=== PATIENT | male | born 1955 | race Caucasian/White ===

== ENCOUNTER 2019-05-10 07:42 | Inpatient (IN) | payer BC ==
[~2019-05-10] VITALS: Ht 177.8 cm; Wt 94.2 kg
[2019-05-10] VITALS (9 sets, daily range): BP systolic 129–180; BP diastolic 83–105
[2019-05-10] MEDS ORDERED: heparin 25,000 UNIT/250ml bag 250 ML IV SCH ×2 (08:31→10:43)
[2019-05-10] MEDS ORDERED: heparin 10,000 units/1 ML INJ IV ONE ×2 (08:35→08:45)
[2019-05-10] MEDS ORDERED: heparin 10,000 units/1 ML INJ IV PRN ×2 (08:35→10:45)
[2019-05-10 08:52] LABS: CLARITY,URINE CLEAR (Clear); COLOR,URINE YELLOW (Yellow); GLUCOSE, URINE NEGATIVE (Neg); KETONES,URINE NEGATIVE (Neg); LEUKOCYTE ESTERASE ,URINE NEGATIVE (Neg); NITRITES, URINE NEGATIVE (Neg); OCCULT BLOOD,URINE NEGATIVE (Neg); PROTEIN,URINE NEGATIVE (Neg); UROBILINOGEN,URINE 0.2 E.U/dL (0.2-1.0)
[2019-05-10 08:53] LABS: UA COLLECTION TYPE CLN CATCH MIDSTREAM
[2019-05-10 09:29] LABS: BASOPHILS % (AUTO) 0.7 % (0-1); EOSINOPHILS # (AUTO) 0.1 X10'3 (0-0.9); EOSINOPHILS % (AUTO) 1.5 % (0-6); HEMATOCRIT 41.1 % (42.0-52.0); HEMOGLOBIN 13.9 g/dl (14.0-17.9); LYMPHOCYTES # (AUTO) 2.9 X10'3 (1.1-4.8); LYMPHOCYTES % (AUTO) 44.5 % (21-51); MEAN CORPUSCULAR HEMOGLOBIN 30.2 PG (27.0-31.0); MEAN CORPUSCULAR HGB CONC 33.8 g/dL (33.0-36.5); MEAN CORPUSCULAR VOLUME 89.3 FL (78-98); MEAN PLATELET VOLUME 9.7 FL (7.4-10.4); MONOCYTES # (AUTO) 0.6 X10'3 (0-0.9); MONOCYTES % (AUTO) 9.4 % (2-12); NEUTROPHILS # (AUTO) 2.9 X10'3 (1.8-7.7); NEUTROPHILS % (AUTO) 43.9 % (42-75); PLATELET COUNT 242 X10'3 (140-440); RED CELL DISTRIBUTION WIDTH 13.9 % (11.5-14.5); WHITE BLOOD COUNT 6.5 X10'3 (4.5-11.0)
[2019-05-10 09:38] LABS: PARTIAL THROMBOPLASTIN TIME 36 SECONDS (22-32)
[2019-05-10 09:43] LABS: ALANINE AMINOTRANSFERASE 105 U/L (12-78); ALBUMIN 3.5 G/DL (3.4-5.0); ALBUMIN/GLOBULIN RATIO 1.1 (1.1-1.5); ALKALINE PHOSPHATASE 93 IU/L (46-116); ANION GAP 6 (8-16); ASPARTATE AMINO TRANSFERASE 24 U/L (10-37); BILIRUBIN,TOTAL 0.4 MG/DL (0.1-1.0); BLOOD UREA NITROGEN 9 MG/DL (7-18); BUN/CREATININE RATIO 9.2 (5.4-32.0); CALCIUM 8.9 MG/DL (8.5-10.1); CHLORIDE 104 MMOL/L (99-107); CREATININE 0.98 MG/DL (0.60-1.10); GLUCOSE 99 MG/DL (70-104); POTASSIUM 3.5 MMOL/L (3.5-5.1); SODIUM 141 MMOL/L (135-145); TOTAL CARBON DIOXIDE 31.3 MMOL/L (24-32); TOTAL PROTEIN 6.7 G/DL (6.4-8.2); eGFR 77 ML/MIN
[2019-05-10] MEDS ORDERED: magnesium hydroxide 30ml (MOM) UD suspension PO PRN ×2 (10:45→19:25)
[2019-05-10] MEDS ORDERED: morphine 2 MG/ML inj. syringe IV PRN ×2 (10:45)
[2019-05-10] MEDS ORDERED: magnesium 2GM in 50ml NS 50 ML IV PRN (10:45)
[2019-05-10] MEDS ORDERED: magnesium Cl slow-release 64mg tablet PO PRN (10:45)
[2019-05-10] MEDS ORDERED: potassium Cl 20 mEq SR tablet PO PRN ×2 (10:45)
[2019-05-10] MEDS ORDERED: acetaminophen 325mg tablet PO PRN ×3 (10:45→19:15)
[2019-05-10] MEDS ORDERED: ondansetron/PF 4mg/2ml inj IV PRN ×2 (10:45→19:15)
[2019-05-10] MEDS ORDERED: magnesium 4gm in 100ml NS 100 ML IV PRN (10:45)
[2019-05-10] MEDS ORDERED: diphenhydrAMINE 25mg capsule PO PRN (10:45)
[2019-05-10] MEDS ORDERED: metoclopramide 5 mg/ml inj IV PRN (10:45)
[2019-05-10] MEDS ORDERED: diphenhydrAMINE 50 mg/ml inj IV PRN (10:45)
[2019-05-10] MEDS ORDERED: potassium CL 10mEq/100ml bag 100 ML IV PRN ×2 (10:45)
[2019-05-10] MEDS ORDERED: bisacodyl 10mg suppository rectal RC PRN (10:45)
[2019-05-10] MEDS ORDERED: acetaminophen 650mg rectal suppository RC PRN (10:45)
[2019-05-10] MEDS ORDERED: mag hydrox/Alum hydrox/simeth 30ml oral suspension PO PRN (10:45)
[2019-05-10] MEDS ORDERED: NITR0.4T51 SL (10:54)
[2019-05-10] MEDS ORDERED: METO25TA6 PO (10:54)
[2019-05-10] MEDS ORDERED: ASPI-1265 PO (10:54)
[2019-05-10] MEDS ORDERED: LOSA100T57 PO (10:54)
[2019-05-10] MEDS ORDERED: ATOR80TA PO (10:54)
[2019-05-10 11:35] LABS: BASOPHILS # (AUTO) 0.1 X10'3 (0-0.2); EOSINOPHILS # (AUTO) 0.1 X10'3 (0-0.9); EOSINOPHILS % (AUTO) 1.9 % (0-6); HEMATOCRIT 40.3 % (42.0-52.0); HEMOGLOBIN 13.8 g/dl (14.0-17.9); LYMPHOCYTES % (AUTO) 46.4 % (21-51); MEAN CORPUSCULAR HEMOGLOBIN 30.4 PG (27.0-31.0); MEAN CORPUSCULAR HGB CONC 34.1 g/dL (33.0-36.5); MEAN PLATELET VOLUME 9.5 FL (7.4-10.4); MONOCYTES # (AUTO) 0.6 X10'3 (0-0.9); MONOCYTES % (AUTO) 8.8 % (2-12); NEUTROPHILS # (AUTO) 2.7 X10'3 (1.8-7.7); NEUTROPHILS % (AUTO) 41.9 % (42-75); PLATELET COUNT 238 X10'3 (140-440); RED BLOOD COUNT 4.53 X10'6 (4.70-6.10); WHITE BLOOD COUNT 6.5 X10'3 (4.5-11.0)
--- NOTE | 2019-05-10 11:50 | NUR ---
Received patient report from CATERINA Abdullahi in the ED. Patient is to be transferred to room 3014A. Will await patients arrival to the floor.
--- NOTE | 2019-05-10 12:15 | NUR ---
Patient has arrived to room 3014A via a gurney and transported by CATERINA Abdullahi. Patient was able to ambulate to the bed without assistance and had a steady gait. Patient has had his nasal swab, v/s, physical assessment, and questions answered at this time. Patient has been placed on tele #[id number]. Patient has been oriented to the room: call light within reach, BLL, SRx2. Will continue to monitor the patient.
[2019-05-10] MEDS ORDERED: LOSA1TAB39 PO (12:40)
[2019-05-10] MEDS ORDERED: AMLO10TA13 PO (12:42)
[2019-05-10] MEDS ORDERED: diphenhydrAMINE 25mg capsule PO ONE (14:00)
[2019-05-10] MEDS ORDERED: LORazepam 1 MG tablet PO ONE (14:00)
--- NOTE | 2019-05-10 14:02 | NUR ---
New orders from Dr. Jalloh. benadryl 50 mg PO now and 1 mg PO ativan now.
[2019-05-10] MEDS: normal saline 1000ml 1,000 ML IV SCH ×2 (14:42→20:51)
[2019-05-10 16:26] LABS: PARTIAL THROMBOPLASTIN TIME 65 SECONDS (22-32)
[2019-05-10] MEDS ORDERED: LIDOcaine 1% (10mg/ml)w/preservative injection 20ml MDV ONE (17:06)
[2019-05-10] MEDS ORDERED: iohexol 350 MG/ML 50ML vial IV ONE (17:06)
[2019-05-10] MEDS ORDERED: fentaNYL/PF 50MCG/1 ML 2ML syringe ONE (17:06)
[2019-05-10] MEDS ORDERED: iohexol 350MG/ML 100ml bottle IV ONE (17:06)
[2019-05-10] MEDS ORDERED: midazolam 2 mg/2 ml injection ONE (17:06)
[2019-05-10] MEDS ORDERED: nitroGLYCERIN 0.4mg SUBLingual tab SL PRN ×2 (18:05→19:25)
--- NOTE | 2019-05-10 18:42 | NUR ---
Problems reprioritized. Patient report given, questions answered & plan of care reviewed with CATERINA Sellers. 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
[2019-05-10] MEDS ORDERED: nitroGLYCERIN-Tridil 50MG/D5W 250 ML IV ONE (18:54)
[2019-05-10] MEDS ORDERED: HYDROcodone/acetaminophen 10/325mg tab PO PRN (19:15)
[2019-05-10] MEDS ORDERED: proCHLORperazine 10 MG/2 ml inj IV PRN (19:15)
[2019-05-10] MEDS ORDERED: OXAZEpam 15mg capsule PO PRN (19:15)
[2019-05-10] MEDS ORDERED: cyclobenzaprine 10mg tablet PO PRN (19:25)
[2019-05-10] MEDS ORDERED: morphine 4 MG/ML inj SYRINge IV PRN (19:25)
[2019-05-10] MEDS: K and/or MAG REPLACEMENT MC SCH (20:00)
[2019-05-10] MEDS ORDERED: docusate sod 100mg capsule PO SCH (20:00)
[2019-05-10] MEDS: docusate sod 100mg capsule PO SCH (20:48)
[2019-05-10] MEDS: atorvastatin 20mg tablet PO SCH (20:49)
[2019-05-10] MEDS: metoprolol tartrate 12.5mg (1/2 tablet) PO SCH (20:49)
[2019-05-10] MEDS: nitroGLYCERIN-Tridil 50MG/D5W 250 ML IV SCH (20:50)
[2019-05-10] MEDS ORDERED: temazepam 15mg capsule PO PRN (21:00)
--- NOTE | 2019-05-10 22:01 | NUR ---
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 Sheath site soft, dressing clean, dry, intact. Arterial sheath transduced to monitor. Pt hypertensive, Nitro drip started per MD order. 1934: [place] catheter placement attempted, unsuccessful with both 16F temp [place] and coude catheter. Urinal at patients bedside. 2200: Pt appears to be sleeping. Titrating Nitro per MD order.
[2019-05-11] VITALS (24 sets, daily range): BP systolic 110–163; BP diastolic 66–89
[2019-05-11 02:32] LABS: BASOPHILS # (AUTO) 0.1 X10'3 (0-0.2); BASOPHILS % (AUTO) 0.7 % (0-1); EOSINOPHILS % (AUTO) 0.2 % (0-6); HEMATOCRIT 37.6 % (42.0-52.0); HEMOGLOBIN 12.8 g/dl (14.0-17.9); LYMPHOCYTES # (AUTO) 1.2 X10'3 (1.1-4.8); LYMPHOCYTES % (AUTO) 13.2 % (21-51); MEAN CORPUSCULAR HEMOGLOBIN 30.3 PG (27.0-31.0); MEAN CORPUSCULAR HGB CONC 34.1 g/dL (33.0-36.5); MEAN CORPUSCULAR VOLUME 88.8 FL (78-98); MEAN PLATELET VOLUME 9.7 FL (7.4-10.4); MONOCYTES # (AUTO) 0.7 X10'3 (0-0.9); MONOCYTES % (AUTO) 7.9 % (2-12); NEUTROPHILS # (AUTO) 6.9 X10'3 (1.8-7.7); PLATELET COUNT 229 X10'3 (140-440); RED BLOOD COUNT 4.24 X10'6 (4.70-6.10); WHITE BLOOD COUNT 8.8 X10'3 (4.5-11.0)
[2019-05-11 02:50] LABS: ALANINE AMINOTRANSFERASE 82 U/L (12-78); ALBUMIN 3.1 G/DL (3.4-5.0); ALKALINE PHOSPHATASE 82 IU/L (46-116); ANION GAP 7 (8-16); ASPARTATE AMINO TRANSFERASE 19 U/L (10-37); BILIRUBIN,TOTAL 0.3 MG/DL (0.1-1.0); BLOOD UREA NITROGEN 13 MG/DL (7-18); BUN/CREATININE RATIO 13.5 (5.4-32.0); CALCIUM 8.5 MG/DL (8.5-10.1); CHLORIDE 105 MMOL/L (99-107); CHOL/HDL RATIO 1.9 (0.00-4.99); CHOLESTEROL 97 MG/DL (0-200); CREATININE 0.96 MG/DL (0.60-1.10); GLUCOSE 134 MG/DL (70-104); HDL CHOLESTEROL 52 MG/DL (35-60); LDL CHOLESTEROL 36 MG/DL (50-100); MAGNESIUM 1.8 MG/DL (1.5-2.4); PHOSPHORUS 2.1 MG/DL (2.3-4.5); POTASSIUM 3.5 MMOL/L (3.5-5.1); SODIUM 139 MMOL/L (135-145); TOTAL PROTEIN 6.1 G/DL (6.4-8.2); TRIGLYCERIDES 63 MG/DL (20-135); eGFR 79 ML/MIN
[2019-05-11 02:51] LABS: HEMOGLOBIN A1C 6.2 % (4.5-6.2)
[2019-05-11] MEDS: HYDROcodone/acetaminophen 5mg/325mg tablet PO PRN ×3 (05:12→19:34)
--- NOTE | 2019-05-11 06:25 | NUR ---
Problems reprioritized. Patient report given, questions answered & plan of care reviewed with Grady DIGGS.
[2019-05-11] MEDS ORDERED: dextrose 50%-water 50ml dispensing syringe IV PRN (07:35)
[2019-05-11] MEDS ORDERED: magnesium 2GM in 50ml NS 50 ML IV PRN (07:35)
[2019-05-11] MEDS ORDERED: MESSAGE TO NURSING PO ONE ×5 (07:35→10:00)
[2019-05-11] MEDS ORDERED: potassium Cl 20mEq/100mL bag 100 ML IV PRN (07:35)
[2019-05-11] MEDS ORDERED: magnesium 4gm in 100ml NS 100 ML IV PRN (07:35)
[2019-05-11] MEDS ORDERED: potassium Cl 20 mEq SR tablet PO PRN (07:35)
[2019-05-11] MEDS ORDERED: atorvastatin 20mg tablet PO SCH (08:00)
[2019-05-11] MEDS ORDERED: metoprolol tartrate 12.5mg (1/2 tablet) PO SCH (08:00)
[2019-05-11] MEDS: K and/or MAG REPLACEMENT MC SCH ×2 (08:00→20:00)
[2019-05-11] MEDS ORDERED: mupirocin 2% ointment 22GM NS SCH (08:00)
[2019-05-11] MEDS: docusate sod 100mg capsule PO SCH ×2 (08:14→19:33)
[2019-05-11] MEDS: metoprolol tartrate 12.5mg (1/2 tablet) PO SCH ×2 (08:14→19:33)
[2019-05-11] MEDS: aspirin 81mg tab.chew PO SCH (08:15)
[2019-05-11] MEDS: normal saline 1000ml 1,000 ML IV SCH ×2 (08:25→19:01)
[2019-05-11] MEDS ORDERED: aspirin 325mg tablet PO SCH (08:30)
--- NOTE | 2019-05-11 08:45 | NUR ---
Spoke with Vickey TOLBERT to confirm orders: Okay to D/C two view x-ray as patient is supine with right groin sheath. Also, okay to D/C 325mg Aspirin. Vickey TOLBERT aware of K/Mg levels, okay to replace per standard ICU replacement of K<3.5 and Mg <1.5 and not the additional post-cardiac replacement orders.
[2019-05-11 09:51] LABS: ABG BASE EXCESS -0.8 mmol/L (-2.0-3.0); ABG HCO3 22.6 mmol/L (22.0-26.0); ABG OXYGEN SATURATION 95.5 % (95-98); ABG PCO2 (T) 33.2 mmHg (35.0-45.0); ABG PO2 (T) 77.6 mmHg (83-108); FCOHb 0.3 % (0.5-1.5); FO2Hb 95.2 % (94-100); TOTAL HEMOGLOBIN 12.6 G/dl (14.0-17.9)
[2019-05-11] MEDS ORDERED: heparin 25,000 UNIT/250ml bag 250 ML IV SCH (11:19)
--- NOTE | 2019-05-11 11:25 | NUR ---
Problems reprioritized. Patient report given, questions answered & plan of care reviewed with Maicol DIGGS.
--- NOTE | 2019-05-11 11:58 | NUR ---
Heparin gtt found at 11.1units/kg/hr and 9.85ml/hr. Change to 12units/kg/hr to correctly reflect MD order. Previous ptt 48. Goal Ptt 45-60. Current infusion rate 10.69ml/hr. Will continue to monitor ptt closely and notify MD of changes.
--- NOTE | 2019-05-11 12:07 | NUR ---
Incorrect weight noted on heparin pump previous weight on pump found at 88.7kg. Pt acutal weight noted to be 99.4kg. Pump updated to reflect current weight and MD order of 12units/kg/hr for an infusion rate of 11.9 ml/hr. Previous ptt 48 and goal ptt 45-60.Will continue to monitor ptt and bleeding closely.
[2019-05-11] MEDS: nitroGLYCERIN-Tridil 50MG/D5W 250 ML IV SCH (13:02)
[2019-05-11] MEDS ORDERED: ringers solution, lacted 1,000 ML IV ONE (13:24)
--- NOTE | 2019-05-11 17:22 | NUR ---
pt with feeling some flushness and clammy. Pt reported having some mild chest tightness. No changes in VS. BPs 150/80s HR 70s sating 98% without SOB. Nitro increased to 60mcg/min. EKG ordered per MD. MD otero to bedside and aware. Will continue to monitor.
[2019-05-11] MEDS ORDERED: temazepam 15mg capsule PO PRN (18:15)
[2019-05-11] MEDS ORDERED: LORazepam 1 MG tablet PO PRN (18:15)
--- NOTE | 2019-05-11 18:40 | NUR ---
Patient in room ICU 2043. I have received report from Maicol DIGGS and had the opportunity to ask questions and assume patient care.
[2019-05-11] MEDS: mupirocin 2% nasal ointment 1gm UD NS SCH (19:34)
--- NOTE | 2019-05-11 22:24 | NUR ---
Pt experiencing increased chest pain, Morphine 2mg IV given for 8/10 pain per patient statement. Titrating Nitro drip per MD order. Placed on 2LNC. EKG obtained, unchanged from previous. Pt states pain relieved p/morphine. Will continue to monitor.
[2019-05-11] MEDS: atorvastatin 20mg tablet PO SCH (23:08)
[2019-05-12] VITALS (25 sets, daily range): BP systolic 121–175; BP diastolic 65–95
[2019-05-12 02:52] LABS: BASOPHILS # (AUTO) 0.1 X10'3 (0-0.2); BASOPHILS % (AUTO) 0.6 % (0-1); EOSINOPHILS % (AUTO) 0.5 % (0-6); HEMATOCRIT 33.6 % (42.0-52.0); HEMOGLOBIN 11.6 g/dl (14.0-17.9); LYMPHOCYTES # (AUTO) 2.9 X10'3 (1.1-4.8); LYMPHOCYTES % (AUTO) 29.4 % (21-51); MEAN CORPUSCULAR HEMOGLOBIN 30.2 PG (27.0-31.0); MEAN CORPUSCULAR HGB CONC 34.4 g/dL (33.0-36.5); MEAN CORPUSCULAR VOLUME 87.8 FL (78-98); MEAN PLATELET VOLUME 9.4 FL (7.4-10.4); MONOCYTES # (AUTO) 1.1 X10'3 (0-0.9); MONOCYTES % (AUTO) 11.4 % (2-12); NEUTROPHILS # (AUTO) 5.7 X10'3 (1.8-7.7); NEUTROPHILS % (AUTO) 58.1 % (42-75); PLATELET COUNT 213 X10'3 (140-440); RED BLOOD COUNT 3.83 X10'6 (4.70-6.10); RED CELL DISTRIBUTION WIDTH 14.2 % (11.5-14.5); WHITE BLOOD COUNT 9.8 X10'3 (4.5-11.0)
[2019-05-12 03:10] LABS: ALANINE AMINOTRANSFERASE 60 U/L (12-78); ALBUMIN 2.7 G/DL (3.4-5.0); ALBUMIN/GLOBULIN RATIO 0.9 (1.1-1.5); ALKALINE PHOSPHATASE 70 IU/L (46-116); ANION GAP 4 (8-16); ASPARTATE AMINO TRANSFERASE 15 U/L (10-37); BILIRUBIN,TOTAL 0.4 MG/DL (0.1-1.0); BLOOD UREA NITROGEN 7 MG/DL (7-18); BUN/CREATININE RATIO 8.4 (5.4-32.0); CALCIUM 8.2 MG/DL (8.5-10.1); CHLORIDE 106 MMOL/L (99-107); CREATININE 0.83 MG/DL (0.60-1.10); GLUCOSE 119 MG/DL (70-104); MAGNESIUM 1.8 MG/DL (1.5-2.4); PHOSPHORUS 3.2 MG/DL (2.3-4.5); POTASSIUM 3.6 MMOL/L (3.5-5.1); SODIUM 139 MMOL/L (135-145); TOTAL CARBON DIOXIDE 28.7 MMOL/L (24-32); TOTAL PROTEIN 5.7 G/DL (6.4-8.2); eGFR > 90 ML/MIN
--- NOTE | 2019-05-12 04:27 | NUR ---
Pt appears to be sleeping. denies pain when awake. Will continue to monitor
[2019-05-12] MEDS ORDERED: ROPIVAcaine 0.5% (5mg/ml) 30ml vial ONE (05:09)
[2019-05-12] MEDS ORDERED: LORazepam 2 mg/ml vial IV ONE (06:00)
[2019-05-12] MEDS ORDERED: MALTODEXTRIN/FRUCTOSE 0.68 KCAL/ML LIQUID 296ML BOTTLE PO ONE (06:00)
[2019-05-12] MEDS ORDERED: ringers solution, lacted 1,000 ML IV ONE (06:00)
[2019-05-12] MEDS ORDERED: famotidine 20mg tablet PO ONE (06:00)
[2019-05-12] MEDS ORDERED: gabapentin 400mg capsule PO ONE (06:00)
[2019-05-12] MEDS ORDERED: LORazepam 2 mg/ml vial ONE (06:20)
[2019-05-12] MEDS ORDERED: vancomycin/NS 1 GM ADD-VANTAGE 250 ML IV ONE (06:30)
[2019-05-12] MEDS ORDERED: cefazolin/dext.iso 2gm/100ml 100 ML IV ONE (06:30)
--- NOTE | 2019-05-12 06:30 | NUR ---
Problems reprioritized. CABG prep completed. Patient report given, questions answered & plan of care reviewed with Rio DIGGS.
[2019-05-12] MEDS: metoprolol tartrate 12.5mg (1/2 tablet) PO SCH (06:46)
[2019-05-12] MEDS: aspirin 81mg tab.chew PO SCH (06:47)
[2019-05-12] MEDS: mupirocin 2% nasal ointment 1gm UD NS SCH ×2 (06:50→19:52)
[2019-05-12] MEDS ORDERED: aminocaproic acid 250 MG/1 ML inj. ONE (06:52)
[2019-05-12] MEDS ORDERED: isoflurane 100ml inhalation liquid IH ONE (06:52)
[2019-05-12] MEDS ORDERED: nitroGLYCERIN in D5W 50mg/250ml (Tridil) infusion IV ONE (06:52)
--- NOTE | 2019-05-12 06:57 | NUR ---
patient sent off to OR. Patient completely prepped. VSS; hypertensive and some intermittent chest pain with anxiety. Patient alert and oriented
[2019-05-12] MEDS ORDERED: SUFENTANIL CITRATE 50 MCG/ML 2ml ampule IV ONE (07:03)
[2019-05-12] MEDS ORDERED: phenylephrine 10mg/ml inj. ONE ×2 (07:05→08:00)
[2019-05-12] MEDS ORDERED: propofol inj 20 ML IV ONE (07:07)
[2019-05-12] MEDS ORDERED: LIDOcaine 2% (20mg/ml) 5ml vial ONE (07:07)
[2019-05-12] MEDS ORDERED: rocuronium 10mg/ml inj IV ONE (07:16)
[2019-05-12] MEDS ORDERED: pancuronium br 1mg/ml inj IV ONE (07:16)
[2019-05-12] MEDS ORDERED: insulin glargine (Lantus) pen - multi-dose SQ PRN ×2 (07:35→11:10)
[2019-05-12 07:45] LABS: ABG BASE EXCESS -0.4 mmol/L (-2.0-3.0); ABG HCO3 23.6 mmol/L (22.0-26.0); ABG OXYGEN SATURATION 98.9 % (95-98); ABG PCO2 36.4 mmHg (35.0-45.0); CL (ABG) 104 mmol/L (99-107); FCOHb 0.4 % (0.5-1.5); FMetHb 0.3 % (0.3-1.12); FO2Hb 98.2 % (94-100); GLUCOSE (ABG) 132 mg/dl (70-104); IONIZED CA (ABG) 1.19 mmol/L (1.03-1.32); K (ABG) 3.1 mmol/L (3.3-5.1); NA (ABG) 137 mmol/L (135-145); TOTAL HEMOGLOBIN 11.4 G/dl (14.0-17.9)
[2019-05-12] MEDS ORDERED: aminophylline 250mg/10ml inj. IV ONE (08:00)
[2019-05-12] MEDS ORDERED: heparin 1,000 units/ml 10ml inj ONE (08:00)
[2019-05-12] MEDS ORDERED: sodium bicarbonate (8.4%) 1 mEq/ml syringe ONE (08:00)
[2019-05-12] MEDS ORDERED: magnesium sulf 1 GM/2 ML ONE (08:00)
[2019-05-12] MEDS: docusate sod 100mg capsule PO SCH ×2 (08:00→20:00)
[2019-05-12] MEDS ORDERED: heparin 10,000 units/1 ML INJ ONE (08:00)
[2019-05-12] MEDS ORDERED: potassium Cl 2 mEq/ml inj IV ONE (08:00)
[2019-05-12] MEDS ORDERED: LIDOcaine 2% (20 mg/ml) 5ml cardiac syringe ONE (08:00)
[2019-05-12] MEDS ORDERED: albumin (human) 25% 100 ML IV solution IV ONE (08:00)
[2019-05-12] MEDS ORDERED: calcium chloride 100 MG/1 ML inj IV ONE (08:00)
[2019-05-12] MEDS ORDERED: papaverine 30 mg/ml 2ml inj. ONE (08:00)
[2019-05-12] MEDS ORDERED: methylPREDNISolone sod. succ. 500mg inj ONE (08:00)
[2019-05-12] MEDS ORDERED: ipratropium/albuterol 3ml nebule IH PRN (08:10)
[2019-05-12 09:06] LABS: ABG BASE EXCESS 3.8 mmol/L (-2.0-3.0); ABG HCO3 26.4 mmol/L (22.0-26.0); ABG PCO2 31.9 mmHg (35.0-45.0); ABG PH 7.536 (7.350-7.450); ABG PO2 406.2 mmHg (60.0-100.0); CL (ABG) 101 mmol/L (99-107); FCOHb 0.1 % (0.5-1.5); FMetHb 0.3 % (0.3-1.12); FO2Hb 98.6 % (94-100); GLUCOSE (ABG) 106 mg/dl (70-104); IONIZED CA (ABG) 1.05 mmol/L (1.03-1.32); K (ABG) 3.8 mmol/L (3.3-5.1); NA (ABG) 133 mmol/L (135-145); TOTAL HEMOGLOBIN 8.7 G/dl (14.0-17.9)
[2019-05-12 09:31] LABS: ABG BASE EXCESS VENOUS 2.2 mmol/L; ABG HCO3 VENOUS 26.4 mmol/L; ABG PCO2 VENOUS 39.4 mmHg; ABG PO2 VENOUS 51.8 mmHg; CL (ABG) 102 mmol/L (99-107); FCOHb VENOUS 0.7 %; FHHb VENOUS 11.3 %; FMetHb VENOUS 0.3 %; FO2Hb VENOUS 87.7 %; GLUCOSE (ABG) 116 mg/dl (70-104); IONIZED CA (ABG) 1.11 mmol/L (1.03-1.32); K (ABG) 3.7 mmol/L (3.3-5.1); NA (ABG) 134 mmol/L (135-145)
[2019-05-12 09:55] LABS: ABG BASE EXCESS 2.5 mmol/L (-2.0-3.0); ABG OXYGEN SATURATION 99.2 % (95-98); ABG PCO2 35.8 mmHg (35.0-45.0); ABG PH 7.479 (7.350-7.450); CL (ABG) 104 mmol/L (99-107); FCOHb 0.6 % (0.5-1.5); FMetHb 0.2 % (0.3-1.12); FO2Hb 98.4 % (94-100); GLUCOSE (ABG) 122 mg/dl (70-104); IONIZED CA (ABG) 1.11 mmol/L (1.03-1.32); K (ABG) 3.8 mmol/L (3.3-5.1); NA (ABG) 134 mmol/L (135-145)
[2019-05-12 10:15] LABS: ABG BASE EXCESS 1.7 mmol/L (-2.0-3.0); ABG OXYGEN SATURATION 99.1 % (95-98); ABG PCO2 39.3 mmHg (35.0-45.0); ABG PH 7.438 (7.350-7.450); ABG PO2 426.4 mmHg (60.0-100.0); CL (ABG) 100 mmol/L (99-107); FCOHb 0.4 % (0.5-1.5); FMetHb 0.6 % (0.3-1.12); FO2Hb 98.1 % (94-100); GLUCOSE (ABG) 112 mg/dl (70-104); IONIZED CA (ABG) 1.43 mmol/L (1.03-1.32); K (ABG) 3.9 mmol/L (3.3-5.1); NA (ABG) 131 mmol/L (135-145); TOTAL HEMOGLOBIN 8.4 G/dl (14.0-17.9)
[2019-05-12 10:50] LABS: ABG BASE EXCESS 1.9 mmol/L (-2.0-3.0); ABG HCO3 25.2 mmol/L (22.0-26.0); ABG OXYGEN SATURATION 96.6 % (95-98); ABG PH 7.487 (7.350-7.450); ABG PO2 87.2 mmHg (60.0-100.0); CL (ABG) 104 mmol/L (99-107); FCOHb 0.3 % (0.5-1.5); FMetHb 0.4 % (0.3-1.12); FO2Hb 95.9 % (94-100); GLUCOSE (ABG) 111 mg/dl (70-104); IONIZED CA (ABG) 1.26 mmol/L (1.03-1.32); K (ABG) 3.5 mmol/L (3.3-5.1); NA (ABG) 134 mmol/L (135-145); TOTAL HEMOGLOBIN 9.7 G/dl (14.0-17.9)
[2019-05-12] MEDS ORDERED: niCARDipine-NS 40mg/200ml IVPB 200 ML IV PRN (11:10)
[2019-05-12] MEDS ORDERED: sodium phosphate inj. 30 MMOL in dextrose 5%-water 250 ML IV PRN (11:10)
[2019-05-12] MEDS ORDERED: morphine 4 MG/ML inj SYRINge IV PRN ×2 (11:10)
[2019-05-12] MEDS ORDERED: magnesium hydroxide 30ml (MOM) UD suspension PO PRN (11:10)
[2019-05-12] MEDS ORDERED: sodium chloride 0.45% 1,000 ML IV SCH (11:10)
[2019-05-12] MEDS ORDERED: ondansetron/PF 4mg/2ml inj IV PRN (11:10)
[2019-05-12] MEDS ORDERED: potassium Cl 20 mEq SR tablet PO PRN (11:10)
[2019-05-12] MEDS ORDERED: sodium phosphate inj. 15 MMOL in dextrose 5%-water 150 ML IV PRN (11:10)
[2019-05-12] MEDS ORDERED: nitroGLYCERIN-Tridil 50MG/D5W 250 ML IV PRN (11:10)
[2019-05-12] MEDS ORDERED: insulin regular, human 100 UNIT in normal saline 100ml IV soln 100 ML IV SCH ×2 (11:10)
[2019-05-12] MEDS ORDERED: HYDROcodone/acetaminophen 10/325mg tab PO PRN (11:10)
[2019-05-12] MEDS ORDERED: normal saline 250ml IV soln 250 ML IV PRN (11:10)
[2019-05-12] MEDS ORDERED: Neutra Phos packet PO PRN (11:10)
[2019-05-12] MEDS ORDERED: acetaminophen 325mg tablet PO PRN ×2 (11:10)
[2019-05-12] MEDS ORDERED: magnesium 4gm in 100ml NS 100 ML IV PRN (11:10)
[2019-05-12] MEDS ORDERED: dextrose 50%-water 50ml dispensing syringe IV PRN (11:10)
[2019-05-12] MEDS ORDERED: DOPamine 400mg/D5W 250ml 250 ML IV PRN (11:10)
[2019-05-12] MEDS ORDERED: pantoprazole 40 MG vial IV ONE (11:10)
[2019-05-12] MEDS ORDERED: metoclopramide 5 mg/ml inj IV PRN (11:10)
--- NOTE | 2019-05-12 11:15 | NUR ---
Received to room 2012, accompanied by MDs and surgical crew. Placed on ventilator, to snuff grinder and screener, arterial line and PA line pressure monitored. Chest tubes to suction at 20 cm. Osorio cath to gravity drainage. Dressings are dry and intact. See assessment record. All vasoactive drugs are infusing via central line.
[2019-05-12 11:35] LABS: ABG BASE EXCESS 2.7 mmol/L (-2.0-3.0); ABG HCO3 25.5 mmol/L (22.0-26.0); ABG OXYGEN SATURATION 96.8 % (95-98); ABG PCO2 (T) 31.2 mmHg (35.0-45.0); ABG PH (T) 7.525 (7.350-7.450); ABG PO2 (T) 81.2 mmHg (83-108); FCOHb 0.3 % (0.5-1.5); FMetHb 0.1 % (0.3-1.12); FO2Hb 96.4 % (94-100); MINUTE VOLUME 8 L/min; PATIENT TEMPERATURE 35.6; PEEP 5 cm H2O; RESPIRATORY RATE 12 b/min; TIDAL VOLUME 650 mL; TOTAL HEMOGLOBIN 11.7 G/dl (14.0-17.9)
[2019-05-12 11:43] LABS: BASOPHILS % (AUTO) 0.3 % (0-1); EOSINOPHILS # (AUTO) 0.1 X10'3 (0-0.9); EOSINOPHILS % (AUTO) 0.7 % (0-6); HEMATOCRIT 31.5 % (42.0-52.0); HEMOGLOBIN 10.9 g/dl (14.0-17.9); LYMPHOCYTES # (AUTO) 0.9 X10'3 (1.1-4.8); LYMPHOCYTES % (AUTO) 9.7 % (21-51); MEAN CORPUSCULAR HEMOGLOBIN 30.7 PG (27.0-31.0); MEAN CORPUSCULAR HGB CONC 34.5 g/dL (33.0-36.5); MEAN PLATELET VOLUME 9.3 FL (7.4-10.4); MONOCYTES # (AUTO) 0.6 X10'3 (0-0.9); NEUTROPHILS % (AUTO) 83.3 % (42-75); PLATELET COUNT 143 X10'3 (140-440); RED BLOOD COUNT 3.53 X10'6 (4.70-6.10); RED CELL DISTRIBUTION WIDTH 14.1 % (11.5-14.5); WHITE BLOOD COUNT 9.6 X10'3 (4.5-11.0)
[2019-05-12 11:53] LABS: PARTIAL THROMBOPLASTIN TIME 32 SECONDS (22-32)
[2019-05-12 12:00] LABS: ALANINE AMINOTRANSFERASE 45 U/L (12-78); ALBUMIN 2.5 G/DL (3.4-5.0); ALBUMIN/GLOBULIN RATIO 1.1 (1.1-1.5); ALKALINE PHOSPHATASE 55 IU/L (46-116); ANION GAP 3 (8-16); ASPARTATE AMINO TRANSFERASE 27 U/L (10-37); BILIRUBIN,TOTAL 0.6 MG/DL (0.1-1.0); BLOOD UREA NITROGEN 5 MG/DL (7-18); BUN/CREATININE RATIO 5.6 (5.4-32.0); CALCIUM 8.4 MG/DL (8.5-10.1); CHLORIDE 109 MMOL/L (99-107); CREATININE 0.89 MG/DL (0.60-1.10); GLUCOSE 104 MG/DL (70-104); POTASSIUM 3.1 MMOL/L (3.5-5.1); SODIUM 140 MMOL/L (135-145); TOTAL CARBON DIOXIDE 28.2 MMOL/L (24-32); TOTAL PROTEIN 4.8 G/DL (6.4-8.2); eGFR 86 ML/MIN
[2019-05-12 12:06] LABS: MAGNESIUM 3.2 MG/DL (1.5-2.4)
[2019-05-12 12:08] LABS: PHOSPHORUS 0.7 MG/DL (2.3-4.5)
--- NOTE | 2019-05-12 12:13 | NUR ---
Critical phosphorous of 0.7; pharmacy called for STAT replacement orders per protocol.
[2019-05-12] MEDS: potassium Cl 20mEq/100mL bag 100 ML IV PRN ×8 (12:14→20:51)
[2019-05-12] MEDS: gabapentin 300mg capsule PO SCH ×2 (12:18→20:37)
[2019-05-12] MEDS: insulin regular, human 100 UNIT in normal saline 100ml IV soln 100 ML IV SCH ×4 (13:02→19:04)
[2019-05-12] MEDS: albumin (Human) 5% 250ml 250 ML IV PRN ×2 (14:25→16:08)
[2019-05-12] MEDS: ceFAZolin 1GM/D5W- ADD-VANTAGE 50 ML IV SCH (16:35)
[2019-05-12 17:23] LABS: BASOPHILS % (AUTO) 0.1 % (0-1); EOSINOPHILS % (AUTO) 0 % (0-6); HEMATOCRIT 32.4 % (42.0-52.0); HEMOGLOBIN 11.4 g/dl (14.0-17.9); LYMPHOCYTES # (AUTO) 0.9 X10'3 (1.1-4.8); LYMPHOCYTES % (AUTO) 8.5 % (21-51); MEAN CORPUSCULAR HEMOGLOBIN 30.6 PG (27.0-31.0); MEAN CORPUSCULAR HGB CONC 35.3 g/dL (33.0-36.5); MEAN CORPUSCULAR VOLUME 86.7 FL (78-98); MEAN PLATELET VOLUME 9.4 FL (7.4-10.4); MONOCYTES # (AUTO) 0.4 X10'3 (0-0.9); NEUTROPHILS # (AUTO) 8.7 X10'3 (1.8-7.7); NEUTROPHILS % (AUTO) 87.4 % (42-75); PLATELET COUNT 154 X10'3 (140-440); RED BLOOD COUNT 3.74 X10'6 (4.70-6.10)
[2019-05-12 17:34] LABS: ALBUMIN 3.1 G/DL (3.4-5.0); ANION GAP 6 (8-16); BLOOD UREA NITROGEN 6 MG/DL (7-18); BUN/CREATININE RATIO 6.4 (5.4-32.0); CALCIUM 8.4 MG/DL (8.5-10.1); CHLORIDE 111 MMOL/L (99-107); CREATININE 0.94 MG/DL (0.60-1.10); GLUCOSE 158 MG/DL (70-104); MAGNESIUM 2.3 MG/DL (1.5-2.4); PHOSPHORUS 1.8 MG/DL (2.3-4.5); POTASSIUM 3.4 MMOL/L (3.5-5.1); SODIUM 142 MMOL/L (135-145); TOTAL CARBON DIOXIDE 24.8 MMOL/L (24-32); eGFR 81 ML/MIN
[2019-05-12] MEDS: magnesium 2GM in 50ml NS 50 ML IV PRN (17:44)
--- NOTE | 2019-05-12 18:22 | NUR ---
Problems reprioritized. Patient report given, questions answered & plan of care reviewed with Zoila DIGGS.
--- NOTE | 2019-05-12 18:30 | NUR ---
Patient in room CICU 2011. I have received report from Grady DIGGS and had the opportunity to ask questions and assume patient care.
[2019-05-12] MEDS: VANCOMYCIN 1gm/H2O 200ml PB 200 ML IV SCH (19:53)
[2019-05-12 21:01] LABS: ABG BASE EXCESS -2.8 mmol/L (-2.0-3.0); ABG HCO3 19.7 mmol/L (22.0-26.0); ABG OXYGEN SATURATION 97.2 % (95-98); ABG PCO2 (T) 28.7 mmHg (35.0-45.0); ABG PH (T) 7.457 (7.350-7.450); ABG PO2 (T) 103.3 mmHg (83-108); FCOHb 0.3 % (0.5-1.5); FMetHb 0.1 % (0.3-1.12); FO2Hb 96.8 % (94-100); MINUTE VOLUME 12 L/min; PEEP 5 cm H2O; RESPIRATORY RATE (OBSERVED) 32 b/min
--- NOTE | 2019-05-12 21:10 | NUR ---
Patient extubated at 2110 to 4L NC. Patient doing well, all VS stable at this time. Will continue to monitor.
[2019-05-13] VITALS (24 sets, daily range): BP systolic 120–160; BP diastolic 71–96
--- NOTE | 2019-05-13 | NUR ---
Patients Nitro increased, artline BP increasing at this time. Will continue to monitor.
[2019-05-13] MEDS: ceFAZolin 1GM/D5W- ADD-VANTAGE 50 ML IV SCH ×3 (00:03→17:06)
--- NOTE | 2019-05-13 00:43 | NUR ---
Artline and BP cuff on right arm and not correlating. Artline pressure approx 20 points higher. Will continue to monitor.
[2019-05-13] MEDS: HYDROcodone/acetaminophen 10/325mg tab PO PRN ×2 (03:05→20:24)
[2019-05-13 03:15] LABS: BASOPHILS % (AUTO) 0 % (0-1); EOSINOPHILS % (AUTO) 0 % (0-6); HEMATOCRIT 31.5 % (42.0-52.0); HEMOGLOBIN 10.7 g/dl (14.0-17.9); LYMPHOCYTES % (AUTO) 5.6 % (21-51); MEAN CORPUSCULAR HEMOGLOBIN 30.3 PG (27.0-31.0); MEAN CORPUSCULAR VOLUME 89.1 FL (78-98); MEAN PLATELET VOLUME 10.4 FL (7.4-10.4); MONOCYTES % (AUTO) 5.5 % (2-12); NEUTROPHILS # (AUTO) 15.4 X10'3 (1.8-7.7); NEUTROPHILS % (AUTO) 88.9 % (42-75); PLATELET COUNT 149 X10'3 (140-440); RED BLOOD COUNT 3.53 X10'6 (4.70-6.10); RED CELL DISTRIBUTION WIDTH 14.3 % (11.5-14.5); WHITE BLOOD COUNT 17.3 X10'3 (4.5-11.0)
[2019-05-13 03:19] LABS: PARTIAL THROMBOPLASTIN TIME 29 SECONDS (22-32)
[2019-05-13 03:31] LABS: ALANINE AMINOTRANSFERASE 47 U/L (12-78); ALBUMIN 2.8 G/DL (3.4-5.0); ALKALINE PHOSPHATASE 53 IU/L (46-116); ANION GAP 10 (8-16); ASPARTATE AMINO TRANSFERASE 46 U/L (10-37); BILIRUBIN,TOTAL 0.3 MG/DL (0.1-1.0); BLOOD UREA NITROGEN 7 MG/DL (7-18); BUN/CREATININE RATIO 7.7 (5.4-32.0); CALCIUM 8.3 MG/DL (8.5-10.1); CHLORIDE 110 MMOL/L (99-107); CREATININE 0.91 MG/DL (0.60-1.10); GLUCOSE 145 MG/DL (70-104); MAGNESIUM 2.3 MG/DL (1.5-2.4); PHOSPHORUS 3.8 MG/DL (2.3-4.5); SODIUM 143 MMOL/L (135-145); TOTAL PROTEIN 5.5 G/DL (6.4-8.2); eGFR 84 ML/MIN
[2019-05-13] MEDS: magnesium 2GM in 50ml NS 50 ML IV PRN ×2 (04:32→13:18)
[2019-05-13] MEDS: potassium Cl 20mEq/100mL bag 100 ML IV PRN ×2 (04:33→05:26)
--- NOTE | 2019-05-13 06:28 | NUR ---
Problems reprioritized. Patient report given, questions answered & plan of care reviewed with Grady DIGGS.
[2019-05-13] MEDS: docusate sod 100mg capsule PO SCH ×2 (07:48→20:25)
[2019-05-13] MEDS: mupirocin 2% nasal ointment 1gm UD NS SCH ×2 (07:48→20:23)
[2019-05-13] MEDS: atorvastatin 10mg tablet PO SCH (07:49)
[2019-05-13] MEDS: gabapentin 300mg capsule PO SCH ×3 (07:49→20:23)
[2019-05-13] MEDS: VANCOMYCIN 1gm/H2O 200ml PB 200 ML IV SCH ×2 (07:50→20:25)
[2019-05-13] MEDS ORDERED: metoprolol tartrate 12.5mg (1/2 tablet) PO SCH (08:00)
[2019-05-13] MEDS ORDERED: aspirin 325mg tablet, delayed-release (Ecotrin) PO SCH (08:00)
[2019-05-13] MEDS ORDERED: losartan 50mg tablet PO ONE (09:10)
[2019-05-13] MEDS ORDERED: metoprolol tartrate 12.5mg (1/2 tablet) PO ONE (09:10)
[2019-05-13] MEDS ORDERED: furosemide 40mg/4ml inj IV ONE (09:15)
[2019-05-13 12:30] LABS: MAGNESIUM 2.4 MG/DL (1.5-2.4)
[2019-05-13 12:36] LABS: POTASSIUM 4.1 MMOL/L (3.5-5.1)
[2019-05-13 17:35] LABS: MAGNESIUM 2.8 MG/DL (1.5-2.4); POTASSIUM 4.5 MMOL/L (3.5-5.1)
--- NOTE | 2019-05-13 18:27 | NUR ---
Problems reprioritized. Patient report given, questions answered & plan of care reviewed with Zoila DIGGS.
--- NOTE | 2019-05-13 18:30 | NUR ---
Patient in room CICU 2011. I have received report from Grady DIGGS and had the opportunity to ask questions and assume patient care.
--- NOTE | 2019-05-13 19:30 | NUR ---
Patient ambulated 200 feet, tolerated well and back to room to sit in chair. Patient in chair watching TV at this time. Will continue to monitor.
[2019-05-13] MEDS: metoprolol tartrate 12.5mg (1/2 tablet) PO SCH (20:24)
[2019-05-14] VITALS (15 sets, daily range): BP systolic 111–148; BP diastolic 76–101
[2019-05-14] MEDS: ceFAZolin 1GM/D5W- ADD-VANTAGE 50 ML IV SCH (00:24)
[2019-05-14 04:09] LABS: ALBUMIN 2.6 G/DL (3.4-5.0); ANION GAP 4 (8-16); BLOOD UREA NITROGEN 14 MG/DL (7-18); BUN/CREATININE RATIO 16.1 (5.4-32.0); CALCIUM 8.2 MG/DL (8.5-10.1); CHLORIDE 108 MMOL/L (99-107); CREATININE 0.87 MG/DL (0.60-1.10); GLUCOSE 127 MG/DL (70-104); MAGNESIUM 2.4 MG/DL (1.5-2.4); PHOSPHORUS 2.8 MG/DL (2.3-4.5); POTASSIUM 4.5 MMOL/L (3.5-5.1); SODIUM 140 MMOL/L (135-145); TOTAL CARBON DIOXIDE 28.4 MMOL/L (24-32); eGFR 89 ML/MIN
[2019-05-14] MEDS: magnesium 2GM in 50ml NS 50 ML IV PRN (04:53)
[2019-05-14 05:55] LABS: BASOPHILS % (AUTO) 0.1 % (0-1); EOSINOPHILS % (AUTO) 0 % (0-6); HEMATOCRIT 32.1 % (42.0-52.0); HEMOGLOBIN 10.9 g/dl (14.0-17.9); LYMPHOCYTES % (AUTO) 12.3 % (21-51); MEAN CORPUSCULAR HEMOGLOBIN 30.7 PG (27.0-31.0); MEAN CORPUSCULAR HGB CONC 34.1 g/dL (33.0-36.5); MEAN PLATELET VOLUME 10.6 FL (7.4-10.4); MONOCYTES # (AUTO) 1.4 X10'3 (0-0.9); MONOCYTES % (AUTO) 8.4 % (2-12); NEUTROPHILS % (AUTO) 79.2 % (42-75); PLATELET COUNT 167 X10'3 (140-440); RED BLOOD COUNT 3.56 X10'6 (4.70-6.10); RED CELL DISTRIBUTION WIDTH 14.1 % (11.5-14.5); WHITE BLOOD COUNT 16.5 X10'3 (4.5-11.0)
--- NOTE | 2019-05-14 06:33 | NUR ---
Problems reprioritized. Patient report given, questions answered & plan of care reviewed with Carmelo DIGGS.
[2019-05-14 06:53] LABS: LARGE PLATELETS FEW; PLATELET ESTIMATE NORMAL
[2019-05-14] MEDS: mupirocin 2% nasal ointment 1gm UD NS SCH (08:00)
[2019-05-14] MEDS: aspirin 81mg tab.chew PO SCH (08:07)
[2019-05-14] MEDS: atorvastatin 10mg tablet PO SCH (08:08)
[2019-05-14] MEDS: gabapentin 300mg capsule PO SCH (08:08)
[2019-05-14] MEDS: pantoprazole 40mg Tablet.DR PO SCH (08:08)
[2019-05-14] MEDS: clopidogrel 75mg tablet PO SCH (08:08)
[2019-05-14] MEDS: metoprolol tartrate 12.5mg (1/2 tablet) PO SCH ×2 (08:08→20:10)
[2019-05-14] MEDS: docusate sod 100mg capsule PO SCH ×2 (08:09→20:09)
[2019-05-14] MEDS: HYDROcodone/acetaminophen 10/325mg tab PO PRN ×2 (08:09→17:04)
[2019-05-14] MEDS ORDERED: potassium Cl 20mEq/100mL bag 100 ML IV PRN (09:45)
[2019-05-14] MEDS ORDERED: potassium Cl 20 mEq SR tablet PO PRN (09:45)
[2019-05-14] MEDS ORDERED: magnesium 2GM in 50ml NS 50 ML IV PRN (09:45)
[2019-05-14] MEDS ORDERED: magnesium 4gm in 100ml NS 100 ML IV PRN (09:45)
--- NOTE | 2019-05-14 09:48 | NUR ---
liseth TLOBERT at the bedside removing chest tube
--- NOTE | 2019-05-14 10:54 | NUR ---
gave report to otis DIGGS patient going ACCE unit room 316
--- NOTE | 2019-05-14 11:15 | NUR ---
PATIENT ARRIVES TO UNIT FROM ICU VIA WHEELCHAIR. VITAL SIGNS STABLE PATIENT IS IN SINUS RHYTHM. NO ACUTE DISTRESS AND PATIENT DENIES PAIN OR CONCERNS AT THIS TIME. WILL CONTINUE TO MONITOR.
--- NOTE | 2019-05-14 11:31 | NUR ---
TRANSFERRED PATIENT TO ROOM 316
--- NOTE | 2019-05-14 11:44 | NUR ---
CABG Consult: Pt s/p CABG PO 100% NCS diet meeting needs. LBM 05/09 receiving colace post-op w/ MoM PRN not yet given. Pt seen by RD for written/verbal CABG/HH eds w/ RD contact information provided. Pt reports good appetite and agreed to double proteins BIDLD; dietary notified. Per pt, takes MVI at home. Did have questions regarding Na content in foods; RD reviewed lower sodium alternatives. Will continue to monitor. Rec: 1. continue NCS diet per MD; double proteins BIDLD 2. routine bowel care post-op 3. wt per rx Addendum: 05/14/19 at [address] Amended: Links added.
--- NOTE | 2019-05-14 18:17 | NUR ---
Patient in room MED 316. I have received report from Malathi DIGGS and had the opportunity to ask questions and assume patient care. Bedside reported completed. no distress noted.
[2019-05-14] MEDS: potassium Cl 20 mEq SR tablet PO SCH (19:53)
[2019-05-14] MEDS: magnesium Cl slow-release 64mg tablet PO SCH (19:54)
[2019-05-14] MEDS: losartan 50mg tablet PO SCH (20:10)
[2019-05-15 02:11] VITALS: BP 111/74
[2019-05-15 02:37] LABS: BASOPHILS # (AUTO) 0.1 X10'3 (0-0.2); BASOPHILS % (AUTO) 0.9 % (0-1); EOSINOPHILS # (AUTO) 0.2 X10'3 (0-0.9); EOSINOPHILS % (AUTO) 1.4 % (0-6); HEMATOCRIT 33.1 % (42.0-52.0); HEMOGLOBIN 11.3 g/dl (14.0-17.9); LYMPHOCYTES % (AUTO) 26.9 % (21-51); MEAN CORPUSCULAR HEMOGLOBIN 30.5 PG (27.0-31.0); MEAN CORPUSCULAR VOLUME 89.8 FL (78-98); MEAN PLATELET VOLUME 9.6 FL (7.4-10.4); MONOCYTES # (AUTO) 1.2 X10'3 (0-0.9); MONOCYTES % (AUTO) 10.7 % (2-12); NEUTROPHILS # (AUTO) 6.6 X10'3 (1.8-7.7); NEUTROPHILS % (AUTO) 60.1 % (42-75); PLATELET COUNT 191 X10'3 (140-440); RED BLOOD COUNT 3.69 X10'6 (4.70-6.10); RED CELL DISTRIBUTION WIDTH 14.3 % (11.5-14.5)
[2019-05-15 02:48] LABS: ALBUMIN 2.4 G/DL (3.4-5.0); ANION GAP 4 (8-16); BLOOD UREA NITROGEN 15 MG/DL (7-18); BUN/CREATININE RATIO 16.3 (5.4-32.0); CALCIUM 8.2 MG/DL (8.5-10.1); CHLORIDE 106 MMOL/L (99-107); CREATININE 0.92 MG/DL (0.60-1.10); GLUCOSE 112 MG/DL (70-104); SODIUM 138 MMOL/L (135-145); TOTAL CARBON DIOXIDE 28.4 MMOL/L (24-32); eGFR 83 ML/MIN
[2019-05-15 02:50] LABS: POTASSIUM 4.4 MMOL/L (3.5-5.1)
[2019-05-15 06:00] VITALS: BP 140/97
--- NOTE | 2019-05-15 06:16 | NUR ---
Problems reprioritized. Patient report given, questions answered & plan of care reviewed with Max Bustamante. no distress noted.
[2019-05-15] MEDS: clopidogrel 75mg tablet PO SCH (08:00)
[2019-05-15] MEDS: aspirin 81mg tab.chew PO SCH (08:00)
[2019-05-15] MEDS: atorvastatin 10mg tablet PO SCH (08:00)
[2019-05-15] MEDS: magnesium Cl slow-release 64mg tablet PO SCH ×2 (08:00→19:37)
[2019-05-15] MEDS: potassium Cl 20 mEq SR tablet PO SCH ×2 (08:00→19:34)
[2019-05-15] MEDS: metoprolol tartrate 12.5mg (1/2 tablet) PO SCH ×2 (08:01→19:38)
[2019-05-15] MEDS: docusate sod 100mg capsule PO SCH ×2 (08:01→19:39)
[2019-05-15] MEDS: pantoprazole 40mg Tablet.DR PO SCH (08:01)
[2019-05-15] MEDS: HYDROcodone/acetaminophen 10/325mg tab PO PRN (08:01)
[2019-05-15 11:00] VITALS: BP 108/70
--- NOTE | 2019-05-15 12:11 | NUR ---
Patient in room MED 316. I have received report from CATERINA Santana and had the opportunity to ask questions and assume patient care.
[2019-05-15 15:00] VITALS: BP 126/82
--- NOTE | 2019-05-15 18:21 | NUR ---
Problems reprioritized. Patient report given, questions answered & plan of care reviewed with CATERINA Awan.
[2019-05-15 18:42] VITALS: BP_SYST 146; BP_SYST 151; BP_DIAS 93; BP_DIAS 96
[2019-05-15] MEDS: losartan 50mg tablet PO SCH (20:03)
[2019-05-15 22:00] VITALS: BP 128/86
[2019-05-16 02:31] VITALS: BP 134/90
[2019-05-16 02:54] LABS: BASOPHILS # (AUTO) 0.1 X10'3 (0-0.2); BASOPHILS % (AUTO) 0.8 % (0-1); EOSINOPHILS # (AUTO) 0.2 X10'3 (0-0.9); EOSINOPHILS % (AUTO) 2.6 % (0-6); HEMATOCRIT 33.5 % (42.0-52.0); HEMOGLOBIN 11.6 g/dl (14.0-17.9); LYMPHOCYTES # (AUTO) 2.8 X10'3 (1.1-4.8); LYMPHOCYTES % (AUTO) 29.9 % (21-51); MEAN CORPUSCULAR HEMOGLOBIN 30.5 PG (27.0-31.0); MEAN CORPUSCULAR HGB CONC 34.5 g/dL (33.0-36.5); MEAN CORPUSCULAR VOLUME 88.4 FL (78-98); MEAN PLATELET VOLUME 9.1 FL (7.4-10.4); MONOCYTES # (AUTO) 0.9 X10'3 (0-0.9); MONOCYTES % (AUTO) 9.5 % (2-12); NEUTROPHILS # (AUTO) 5.4 X10'3 (1.8-7.7); NEUTROPHILS % (AUTO) 57.2 % (42-75); PLATELET COUNT 225 X10'3 (140-440); RED BLOOD COUNT 3.79 X10'6 (4.70-6.10); RED CELL DISTRIBUTION WIDTH 14.3 % (11.5-14.5); WHITE BLOOD COUNT 9.5 X10'3 (4.5-11.0)
[2019-05-16 03:07] LABS: ALBUMIN 2.5 G/DL (3.4-5.0); ANION GAP 5 (8-16); BLOOD UREA NITROGEN 15 MG/DL (7-18); BUN/CREATININE RATIO 17.6 (5.4-32.0); CALCIUM 8.9 MG/DL (8.5-10.1); CHLORIDE 107 MMOL/L (99-107); CREATININE 0.85 MG/DL (0.60-1.10); GLUCOSE 114 MG/DL (70-104); POTASSIUM 3.9 MMOL/L (3.5-5.1); SODIUM 140 MMOL/L (135-145); TOTAL CARBON DIOXIDE 28.4 MMOL/L (24-32); eGFR > 90 ML/MIN
--- NOTE | 2019-05-16 06:20 | NUR ---
Patient in room MED 316. I have received report from CATERINA Awan and had the opportunity to ask questions and assume patient care.
[2019-05-16 06:23] VITALS: BP 144/87
--- NOTE | 2019-05-16 06:24 | NUR ---
Problems reprioritized. Patient report given, questions answered & plan of care reviewed with Clement DIGGS.
[2019-05-16 07:23] LABS: MAGNESIUM 2.1 MG/DL (1.5-2.4)
[2019-05-16] MEDS: atorvastatin 10mg tablet PO SCH (08:30)
[2019-05-16] MEDS: pantoprazole 40mg Tablet.DR PO SCH (08:30)
[2019-05-16] MEDS: magnesium Cl slow-release 64mg tablet PO SCH (08:30)
[2019-05-16] MEDS: clopidogrel 75mg tablet PO SCH (08:30)
[2019-05-16] MEDS: docusate sod 100mg capsule PO SCH (08:30)
[2019-05-16] MEDS: aspirin 81mg tab.chew PO SCH (08:30)
[2019-05-16] MEDS: potassium Cl 20 mEq SR tablet PO SCH (08:30)
[2019-05-16 08:32] VITALS: BP_SYST 134
[2019-05-16] MEDS: metoprolol tartrate 12.5mg (1/2 tablet) PO SCH (08:32)
[2019-05-16] MEDS ORDERED: METO25TA6 PO (08:42)
[2019-05-16] MEDS ORDERED: DOCU100C40 PO (08:42)
[2019-05-16] MEDS ORDERED: CLOP75TA35 PO (08:42)
[2019-05-16] MEDS ORDERED: HYDR-4353 PO (08:42)
--- NOTE | 2019-05-16 09:55 | NUR ---
Patient stable for discharge per MD orders. All discharge instructions reviewed with patient; all questions answered. Prescription orders given to patient; attempted to call in to [facility] pharmacy in [place], closed for holiday. Patient will fill in [place]. Patient understood follow-up instructions. Education provided on medications, CABG after care, and heart healthy diet. PIV discontinued, cannula intact. Clean, dry dressing in place. black belt removed. All belongings collected and sent with patient. Patient ambulated to [facility] with RN at [id number], to be transported home by private vehicle.
== END 2019-05-16 09:55 | disposition home or self-care (01) | DRG 234 ==
LOC: ER 07:43 → ED HOLD 10:43 → EDBEDREQ 11:29 → PCU 3S 12:36 → ICU 2S 18:44 → CICU 2S 05-12 09:08 → MED 3N 05-14 11:12
PROVIDERS: ADMIT Family Medicine; ATTEND Thoracic Surgery (Cardiothoracic Vascular Surgery)
PROC: 4A023N7 Measurement of Cardiac Sampling and Pressure, Left Heart, Percutaneous Approach (ICD-10-PCS; principal; 2019-05-10)
PROC: B2110ZZ Fluoroscopy of Multiple Coronary Arteries using High Osmolar Contrast (ICD-10-PCS; 2019-05-10)
PROC: B2150ZZ Fluoroscopy of Left Heart using High Osmolar Contrast (ICD-10-PCS; 2019-05-10)
PROC: 0213093 Bypass Coronary Artery, Four or More Arteries from Coronary Artery with Autologous Venous Tissue, Open Approach (ICD-10-PCS; 2019-05-12)
PROC: 0210099 Bypass Coronary Artery, One Artery from Left Internal Mammary with Autologous Venous Tissue, Open Approach (ICD-10-PCS; 2019-05-12)
PROC: 06BQ0ZZ Excision of Left Saphenous Vein, Open Approach (ICD-10-PCS; 2019-05-12)
PROC: B246ZZ4 Ultrasonography of Right and Left Heart, Transesophageal (ICD-10-PCS; 2019-05-12)
DX: I21.4 Non-ST elevation (NSTEMI) myocardial infarction (principal); I25.110 Atherosclerotic heart disease of native coronary artery with unstable angina pectoris; Z80.3 Family history of malignant neoplasm of breast; I25.2 Old myocardial infarction; I11.9 Hypertensive heart disease without heart failure; E78.5 Hyperlipidemia, unspecified; Z82.49 Family history of ischemic heart disease and other diseases of the circulatory system; Z82.3 Family history of stroke
CPT/HCPCS: 0232T; 93306; 93312; 93325; 93458; 99285; Z7506; Z7508; 36415; 36600; 71045; 76937; 80048; 80053; 80061; 81003; 82330; 82435; 82803; 82947; 82948; 83036; 83735; 83880; 84100; 84132; 84295; 84443; 84484; 85018; 85025; 85347; 85384; 85610; 85730; 86885; 86900; 86901; 86920; 87081; 93005; 93880; 93971; 94002; 94010; 94667; 94668; 94760; 97116; 97161; 97530; 99152; 99153; A4618; A6258; A6402; A6449; A7000; A7048; C1713; C1751; C1769; C9113; G0378; J0280; J0690; J1644; J1815; J1940; J2001; J2060; J2150; J2250; J2270; J2370; J2440; J2704; J2795; J2930; J3010; J3370; J3475; J3480; J3490; J7030; J7040; J7050; J7060; J7120; P9045; P9047; Q0163; Q9967